=== PATIENT | female | born 1990 | race Caucasian/White ===

== ENCOUNTER 2017-05-12 10:22 | Emergency (ER) | payer OTHER ==
[~2017-05-12] VITALS: Ht 167.6 cm; Wt 100.0 kg
[2017-05-12 11:42] LABS: BASOPHILS % 0.7 % (0.0-2.0); EOSINOPHILS % 2.3 % (0.0-5.0); HEMATOCRIT. 41.2 % (36.0-48.0); HEMOGLOBIN. 13.5 g/dL (12.0-16.0); LYMPHOCYTES % 22.8 % (20.0-50.0); MEAN CORPUSCULAR HEMOGLOBIN 28.5 pg (28.0-32.0); MEAN PLATELET VOLUME 9.2 fl (7.4-10.4); MONOCYTES % 4.9 % (2.0-8.0); NEUTROPHILS % 69.3 % (40.0-76.0); PLATELET 377 x1000/uL (130-400); RED BLOOD CELL COUNT 4.74 mill/uL (4.2-5.4); RED CELL DISTRIBUTION WIDTH 15.6 % (11.6-14.6)
[2017-05-12 11:59] LABS: CHLORIDE 107 mEq/L (98-107)
[2017-05-12] MEDS ORDERED: PREDNISONE 20MG TABLET PO STA (18:29)
[2017-05-12] MEDS ORDERED: IPRATROPIUM BROMIDE (0.02%) 0.5MG/2.5ML NEB HHN STA (18:29)
[2017-05-12] MEDS ORDERED: ALBUTEROL (0.083%) 2.5MG/3ML NEB HHN STA (18:29)
[2017-05-12 19:51] VITALS: BP 124/87
== END 2017-05-12 21:07 | disposition home or self-care (01) ==
LOC: ER 10:22
DX: R55 Syncope and collapse (principal); J45.909 Unspecified asthma, uncomplicated
CPT/HCPCS: 36415; 80053; 81025; 83880; 84484; 85025; 93005; 94640; 99285; J7512; J7611

== ENCOUNTER 2018-04-27 09:03 | Emergency (ER) | payer SELFPAY ==
[~2018-04-27] VITALS: Ht 170.2 cm; Wt 97.0 kg
[2018-04-27] MEDS ORDERED: ONDANSETRON HCL 4MG/2ML INJ IV STA (10:57)
[2018-04-27] MEDS ORDERED: SODIUM CHLORIDE 0.9% 1,000 ML IV ONE (10:57)
[2018-04-27 11:33] LABS: BASOPHILS % 0.6 % (0.0-2.0); HEMATOCRIT. 41.7 % (36.0-48.0); HEMOGLOBIN. 13.7 g/dL (12.0-16.0); LYMPHOCYTES % 18.7 % (20.0-50.0); MEAN CORPUSCULAR HEMOGLOBIN 29.4 pg (28.0-32.0); MEAN CORPUSCULAR VOLUME 89.6 fL (81.0-99.0); MEAN PLATELET VOLUME 9.7 fl (7.4-10.4); MONOCYTES % 5.7 % (2.0-8.0); PLATELET 268 x1000/uL (130-400); RED BLOOD CELL COUNT 4.66 mill/uL (4.2-5.4); RED CELL DISTRIBUTION WIDTH 15.6 % (11.6-14.6)
[2018-04-27 11:39] LABS: CHLORIDE 109 mEq/L (98-107)
[2018-04-27 11:40] LABS: INR 1.3; PROTHROMBIN TIME 12.7 sec (9.1-11.1)
[2018-04-27] MEDS ORDERED: IOHEXOL-300 100 ML BOTTLE ONE (15:23)
[2018-04-27] MEDS ORDERED: MECLIZINE 25MG TABLET PO ONE (16:45)
[2018-04-27 19:05] VITALS: BP 125/71
== END 2018-04-27 19:07 | disposition home or self-care (01) ==
LOC: ER 09:03
DX: K76.0 Fatty (change of) liver, not elsewhere classified (principal); R11.10 Vomiting, unspecified; R42 Dizziness and giddiness; F41.9 Anxiety disorder, unspecified; F32.9 Major depressive disorder, single episode, unspecified; J45.909 Unspecified asthma, uncomplicated; Z98.51 Tubal ligation status
CPT/HCPCS: 36415; 74177; 80053; 83690; 84484; 85025; 85610; 96361; 96374; 99284; J2405; J7030; Q9967